=== PATIENT | male | born 1995 | race Caucasian/White ===

== ENCOUNTER 2016-12-03 03:20 | Emergency (ER) | payer OTHER ==
[~2016-12-03 03:20] MED LIST: NO HOME MEDICATIONS
[2016-12-03 03:42] VITALS: TEMP 98.7
[2016-12-03 03:51] LABS: HEMATOCRIT 48.8 % (36.0-47.0); HEMOGLOBIN 16.5 g/dl (12.5-16.1); MEAN CELL VOLUME 88 fl (80.0-95.0); MEAN CORPUSCULAR HEMOGLOBIN 30 pg (26.0-32.0); MEAN CORPUSCULAR HGB CONC 34 g/dl (33.0-37.0); MEAN PLATELET VOLUME 9.7 fl (7.4-10.4); PLATELET COUNT 309 K/mm3 (130-400); RED BLOOD COUNT 5.58 M/mm3 (4.20-5.60); REDCELL DISTRIBUTION WIDTH-CV 12.6 % (11.5-14.5); WHITE BLOOD COUNT 17.4 K/mm3 (4.8-10.8)
[2016-12-03 03:55] LABS: ADD PATHOLOGY DIFF REVIEW NO
[2016-12-03 04:00] LABS: BAND 3 % (0-10); EOSINOPHIL 2 % (0-4); NEUTROPHILS 43 % (42.0-75.2); TOTAL CELLS COUNTED 100
[2016-12-03] MEDS ORDERED: BENADRYL25 M2 PO (05:08)
[2016-12-03] MEDS ORDERED: PREDNISONE20 MG PO (05:08)
[2016-12-03] MEDS ORDERED: PEPCID 20MG TAB20 MG PO (05:08)
[2016-12-03 05:16] VITALS: BP 109/47; PULSE 89
== END 2016-12-03 05:23 | disposition home or self-care (01) ==
LOC: COL.ER 03:20
PROVIDERS: Emergency Medicine
DX: L50.0 Allergic urticaria (principal); F41.9 Anxiety disorder, unspecified; F17.210 Nicotine dependence, cigarettes, uncomplicated
CPT/HCPCS: J0171; J1200; J2060; J2765; J2930; J7030

== ENCOUNTER 2020-03-03 19:03 | Emergency (ER) | payer BC ==
[~2020-03-03] VITALS: Ht 177.8 cm; Wt 74.1 kg
[~2020-03-03 19:03] MED LIST changes: +BENADRYL25 M2 PO; +PEPCID 20MG TAB20 MG PO; +PREDNISONE20 MG PO
[2020-03-03 19:09] VITALS: BP 153/79; TEMP 97.1
[2020-03-03 20:23] VITALS: PULSE 80
== END 2020-03-03 20:23 | disposition home or self-care (01) ==
LOC: COL.ER 19:03
DX: S63.501A Unspecified sprain of right wrist, initial encounter (principal); S43.121A Dislocation of right acromioclavicular joint, 100%-200% displacement, initial encounter; F17.200 Nicotine dependence, unspecified, uncomplicated; V18.0XXA Pedal cycle driver injured in noncollision transport accident in nontraffic accident, initial encounter; Y92.331 Roller skating rink as the place of occurrence of the external cause